=== PATIENT | female | born 1945 ===

== ENCOUNTER 2017-07-14 11:42 | Observation (INO) | payer MEDICARE, OTHER ==
[2017-07-14] MEDS ORDERED: Morphine 4 MG/ML VIAL ONE (13:06)
[2017-07-14] MEDS ORDERED: cefTRIAXone (Rocephin) 1 gm Inj ONE (13:08)
[2017-07-14 13:54] LABS: BASO # 0.2 K/uL (0.0-0.2); BASO % 1.3 % (0.0-2.0); EOS # 0.3 K/uL (0.0-0.7); EOS % 1.8 % (0.0-4.0); HEMOGLOBIN 13.2 g/dL (12.0-16.0); LYMPH # 6.2 K/uL (1.0-4.3); LYMPH % 39.8 % (20.0-40.0); MEAN CELL VOLUME 90.8 fl (81.0-99.0); MEAN PLATELET VOLUME 9.3 fl (7.2-11.7); MONO # 1.4 K/uL (0.0-0.8); MONO % 8.8 % (0.0-10.0); NEUT # 7.5 K/uL (1.8-7.0); NEUT % 48.3 % (50.0-75.0); NRBC % 0.4 % (0.0-0.0); RBC 4.56 Mil/uL (3.80-5.20); RED CELL DISTRIBUTION WIDTH 13.6 % (11.5-14.5); WHITE BLOOD COUNT 15.5 K/uL (4.8-10.8)
[2017-07-14 13:59] LABS: ALBUMIN 4.8 g/dL (3.5-5.0); CALCIUM 9.9 mg/dL (8.4-10.2); GFR AFRICAN-AMERICAN > 60; GFR NON-AFRICAN AMERICAN > 60
[2017-07-14 14:01] LABS: ALB/GLOB RATIO 1.2 (1.0-2.1); ALT/SGPT 28 U/L (9-52); AST/SGOT 30 U/L (14-36); BLOOD UREA NITROGEN 13 mg/dl (7-17)
[2017-07-14] MEDS ORDERED: Sodium Chloride 0.9% 50 ML IV ONE (14:55)
[2017-07-14] MEDS ORDERED: Iohexol 300 100 ML IJ ONE (14:55)
--- NOTE | 2017-07-14 15:50 | CT ---
PROCEDURE: CT Abdomen and Pelvis with contrast HISTORY: left sides abscess COMPARISON: None. TECHNIQUE: Contrast dose: 95 mL Omnipaque 300 Radiation dose: Total exam DLP = 569.5 mGy-cm. This CT exam was performed using one or more of the following dose reduction techniques: Automated exposure control, adjustment of the mA and/or kV according to patient size, and/or use of iterative reconstruction technique. FINDINGS: LOWER THORAX: Cardiomegaly. LIVER: Hepatic steatosis. No gross lesion or ductal dilatation. GALLBLADDER AND BILE DUCTS: Unremarkable. PANCREAS: Unremarkable. No gross lesion or ductal dilatation. SPLEEN: Unremarkable. ADRENALS: Unremarkable. No mass. KIDNEYS AND URETERS: Right renal cortical scarring and upper pole altered perfusion. Right lower pole punctate nonobstructive calculus. No hydronephrosis. No solid mass. VASCULATURE: Unremarkable. No aortic aneurysm. BOWEL: Extensive descending colonic diverticulosis. No obstruction. No gross mural thickening. APPENDIX: Normal appendix. PERITONEUM: Unremarkable. No free fluid. No free air. LYMPH NODES: Unremarkable. No enlarged lymph nodes. BLADDER: Unremarkable. REPRODUCTIVE: Calcified uterine fibroids. BONES: Degenerative changes. OTHER FINDINGS: Left lower quadrant skin thickening with 2.3 x 1.2 centimeter subcutaneous abscess. IMPRESSION: Left lower quadrant skin thickening with 2.3 x 1.2 centimeter subcutaneous abscess. Nonspecific right upper pole altered perfusion. This may be chronic in etiology ; however, a similar appearance can also be seen with pyelonephritis in the appropriate clinical setting. Clinical correlation is recommended. Findings conveyed to GERRI Aiken by Dr. Méndez at 3:43 p.m. on 05/21/2018.
[2017-07-14 16:46] LABS: SQUAMOUS EPITHIAL 2 /hpf (0-5); URINE BILIRUBIN NEGATIVE (NEGATIVE); URINE BLOOD NEGATIVE (NEGATIVE); URINE CLARITY CLEAR (Clear); URINE COLOR STRAW (YELLOW); URINE GLUCOSE (UA) NEG (Normal); URINE LEUKOCYTE ESTERASE TRACE Leu/uL (Negative); URINE NITRATE NEGATIVE (NEGATIVE); URINE PROTEIN NEGATIVE (NEGATIVE); URINE UROBILINOGEN 0.2-1.0 mg/dL (0.2-1.0)
--- NOTE | 2017-07-14 16:53 | ED PDOC ---
HPI: General Adult Time Seen by Provider: 07/14/17 12:31 Chief Complaint (Nursing): Abnormal Skin Integrity Chief Complaint (Provider): infection History Per: Patient History/Exam Limitations: no limitations Additional Complaint(s): 72yo F in ED for eval of abscess/redness to left sided lower abd x 2-3days was seen MD Apolinar for eval and Rx bactirm took two doses. no fever no chills nausea no vomiting. Pt is type 2 DM. pt states she felt an itch, scracthed it and it developed over the past days with warmth, tenderness drainage and pain. Past Medical History Reviewed: Historical Data, Nursing Documentation, Vital Signs Vital Signs: Last Vital Signs Temp 97.0 F L 07/14/17 11:53 Pulse 106 H 07/14/17 11:53 Resp 21 07/14/17 11:53 BP 137/69 07/14/17 11:53 Pulse Ox 100 07/14/17 17:22 - Medical History PMH: Anxiety, Asthma, HTN - Family History Family History: States: No Known Family Hx - Allergies Allergies/Adverse Reactions: Allergies Allergy/AdvReac Type Severity Reaction Status Date / Time No Known Allergies Allergy Verified 07/14/17 12:06 Review of Systems ROS Statement: Except As Marked, All Systems Reviewed And Found Negative Constitutional: Negative for: Fever, Chills Gastrointestinal: Positive for: Abdominal Pain. Negative for: Nausea, Vomiting Skin: Positive for: Lesions Physical Exam - Reviewed Nursing Documentation Reviewed: Yes Vital Signs Reviewed: Yes - Physical Exam Appears: Positive for: Well, Non-toxic, No Acute Distress Skin: Positive for: Normal Color, Warm, DRY Cardiovascular/Chest: Positive for: Regular Rate, Rhythm Respiratory: Positive for: CNT, Normal Breath Sounds Gastrointestinal/Abdominal: Positive for: Bowel Sounds, Soft, Tenderness ( tenderess, redness, warthm induration with central area of minor drainage noted to left lower abd. large area of infection. ) Back: Positive for: Normal Inspection Extremity: Positive for: Normal ROM Neurologic/Psych: Positive for: Alert, Oriented - Laboratory Results Result Diagrams: 07/14/17 13:25 07/14/17 13:25 - ECG O2 Sat by Pulse Oximetry: 100 - CT Scan/US ct: abd Other Rad Studies (CT/US): Radiology Report Reviewed - Progress ED Course And Treament: Orders Category Date Time Status ABD & PELVIS IV CONTRAST ONLY [CT] Stat CT 07/14/17 12:56 Completed COMP METABOLIC PANEL Stat Chem 07/14/17 13:25 Completed CBC (WITH DIFFERENTIAL) Stat ALIA 07/14/17 13:25 Completed Iohexol [Omnipaque 300 100 ML] Med 07/14/17 14:55 Discontinued 100 ml IJ .STK-MED ONE Morphine Med 07/14/17 13:06 Discontinued 4 mg .ROUTE .STK-MED ONE Sodium Chloride 0.9% 50 ml Med 07/14/17 14:55 Discontinued IV .STK-MED cefTRIAXone [Rocephin] Med 07/14/17 13:08 Discontinued 1 gm .ROUTE .STK-MED ONE cefTRIAXone [Rocephin] 1 gm Med 07/14/17 12:56 Discontinued Sodium Chloride 0.9% 100 ml IVPB STAT BLOOD CULTURE Stat Micro 07/14/17 13:25 Received UA [URINALYSIS] Stat URINALYSIS 07/14/17 16:20 Received Medical Decision Making Medical Decision Making: pt meets SIRS/Sepsis criteria-elevated WBC, tachycardia upon arrival and source of infection. no elevated lactic acid I&D performed expressed 4cc bus/blood used #11 blade, packing placed Pt is a DM type 2. Pt will need to be admitted for abscess/cellulites as dx on CT for IV abx Pt admitted under Hospitalist MD Julita for MD Apolinar Disposition - Clinical Impression Clinical Impression: Sepsis, Cellulitis - Patient ED Disposition Is Patient to be Admitted: Yes - Disposition Disposition Time: 17:46 Condition: STABLE - Pt Status Changed To: Hospital Disposition Of: Inpatient - Admit Certification Admit to Inpatient:: After my assessment, the patient will require hospitalization for at least two midnights. This is because of the severity of symptoms shown, intensity of services needed, and/or the medical risk in this patient being treated as an outpatient.
[2017-07-14 17:17] LABS: ABG ALLEN TEST YES; ARTERIAL BLOOD GAS HCO3 24.7 mmol/L (21-28); ARTERIAL BLOOD GAS O2 SAT 100.5 % (95-98); ARTERIAL BLOOD GAS PCO2 30 mm/Hg (35-45); ARTERIAL BLOOD GAS PH 7.48 (7.35-7.45); ARTERIAL BLOOD GAS PO2 104 mm/Hg (80-100); ARTERIAL BLOOD GAS TCO2 23.2 mmol/L (22-28)
[2017-07-14] MEDS ORDERED: Sodium Chloride 0.9% 1,000 ML IV SCH (19:00)
--- NOTE | 2017-07-14 19:07 | CP.PCM.HP ---
History of Present Illness - History of Present Illness History of Present Illness: CC: Abscess This is a 72 yo female with a pmh significant for Type 2 DM controlled with oral medications, hypercholesterolemia, history of right knee replacement, who presents to the ED today with concern due to left lower abdomen infection. The patient states that she first noticed a warm, erythematous area to the LLQ and kept scratching it. The area became worse with serosanguinous drainage noted and the patient had subjective fever and malaise. She went to her PMD, Dr. Jiang, and was prescribed Bactrim DS which she began yesterday evening. The patient thought that the infection was becoming worse so she came to the ED. In the ED, CT scan was performed revealing a 2.3 x 1.2 centimeter subcutaneous abscess. There was also noted nonspecific right upper pole of the kidney altered perfusion which could show pyelonephritis in the appropriate setting. However the patient denies any dysuria or frequency and urinalysis shows only trace leukocyte esterase. Other labwork is significant for a white count of 15.5 , neutrophil count of 7.5, chemistry panel unremarkable. The patient is to be placed on observation for further workup and IV antibiotics and septic workup. The patient denies any headache, nausea, vomiting, diarrhea, chest pain, shortness of breath. She is very anxious however. Present on Admission - Present on Admission Any Indicators Present on Admission: No Review of Systems - Review of Systems Review of Systems: A 12 point review of systems was conducted and found to be negative other than what was mentioned in the history of present illness. Past Patient History - Infectious Disease Hx of Infectious Diseases: None - Past Social History Smoking Status: Never Smoked - CARDIAC Hx Hypertension: Yes - PULMONARY Hx Asthma: Yes - ENDOCRINE/METABOLIC Hx Endocrine Disorders: Yes Other/Comment: Thyroid problem - PSYCHIATRIC Hx Anxiety: Yes - SURGICAL HISTORY Hx Surgeries: Yes - ANESTHESIA Hx Anesthesia: Yes Hx Anesthesia Reactions: No Hx Malignant Hyperthermia: No Meds Allergies/Adverse Reactions: Allergies Allergy/AdvReac Type Severity Reaction Status Date / Time No Known Allergies Allergy Verified 07/14/17 12:06 Physical Exam - Additional Findings Additional findings: Physical exam: Constitutional- cooperative, awake, alert Head- NCAT, PERRL Eye- PERRL, EOMI ENT- normal exam, MMM. Neck- normal inspection, supple, no JVD Respiratory- CTAB, no wheezes rales rhonchi Cardiovascular- RRR, +S1, +S2 no MRG GI/Abdominal- normal bowel sounds, soft, no mass, no hsm Skin- warm, dry Extremities Exam- normal capillary refill, normal inspection Neurological Exam- alert, awake, oriented Psych- normal mood, normal affect Results - Vital Signs Recent Vital Signs: Last Vital Signs Temp 97.0 F L 07/14/17 11:53 Pulse 106 H 07/14/17 11:53 Resp 21 07/14/17 11:53 BP 137/69 07/14/17 11:53 Pulse Ox 100 07/14/17 17:46 - Labs Result Diagrams: 07/14/17 13:25 07/14/17 13:25 Labs: Laboratory Results - last 24 hr 07/14/17 07/14/17 07/14/17 13:25 13:25 16:20 WBC 15.5 H RBC 4.56 Hgb 13.2 Hct 41.4 MCV 90.8 MCH 29.0 MCHC 32.0 L RDW 13.6 Plt Count 303 MPV 9.3 Neut % (Auto) 48.3 L Lymph % (Auto) 39.8 Thayer % (Auto) 8.8 Eos % (Auto) 1.8 Baso % (Auto) 1.3 Neut # 7.5 H Lymph # 6.2 H Thayer # 1.4 H Eos # 0.3 Baso # 0.2 pCO2 pO2 HCO3 ABG pH ABG Total CO2 ABG O2 Saturation ABG Base Excess Jairo Test ABG Potassium A-a O2 Difference Glucose Lactate FiO2 Sodium 142 Potassium 4.6 Chloride 105 Carbon Dioxide 24 Anion Gap 18 BUN 13 Creatinine 0.8 Est GFR ( Amer) > 60 Est GFR (Non-Af Amer) > 60 Random Glucose 85 Calcium 9.9 Total Bilirubin 0.5 AST 30 ALT 28 Alkaline Phosphatase 85 Total Protein 8.9 H Albumin 4.8 Globulin 4.1 H Albumin/Globulin Ratio 1.2 Arterial Blood Potassium Urine Color Straw Urine Clarity Clear Urine pH 7.0 Ur Specific [place] 1.045 H Urine Protein Negative Urine Glucose (UA) Neg Urine Ketones Negative Urine Blood Negative Urine Nitrate Negative Urine Bilirubin Negative Urine Urobilinogen 0.2-1.0 Ur Leukocyte Esterase Trace Urine RBC (Auto) 1 Urine Microscopic WBC 1 Ur Squamous Epith Cells 2 07/14/17 17:10 WBC RBC Hgb Hct MCV MCH MCHC RDW Plt Count MPV Neut % (Auto) Lymph % (Auto) Thayer % (Auto) Eos % (Auto) Baso % (Auto) Neut # Lymph # Thayer # Eos # Baso # pCO2 30 L pO2 104 H HCO3 24.7 ABG pH 7.48 H ABG Total CO2 23.2 ABG O2 Saturation 100.5 H ABG Base Excess -0.3 Jairo Test Yes ABG Potassium 4.2 A-a O2 Difference 8.0 Glucose 190 H Lactate 1.3 FiO2 21.0 Sodium 136.0 Potassium Chloride 105.0 Carbon Dioxide Anion Gap BUN Creatinine Est GFR ( Amer) Est GFR (Non-Af Amer) Random Glucose Calcium Total Bilirubin AST ALT Alkaline Phosphatase Total Protein Albumin Globulin Albumin/Globulin Ratio Arterial Blood Potassium 4.2 Urine Color Urine Clarity Urine pH Ur Specific [place] Urine Protein Urine Glucose (UA) Urine Ketones Urine Blood Urine Nitrate Urine Bilirubin Urine Urobilinogen Ur Leukocyte Esterase Urine RBC (Auto) Urine Microscopic WBC Ur Squamous Epith Cells
[2017-07-15 05:57] VITALS: RESP 18
[2017-07-15 05:59] LABS: MEAN CELL VOLUME 91.8 fl (81.0-99.0); MEAN CORPUSCULAR HEMOGLOBIN 29.5 pg (27.0-31.0); MEAN CORPUSCULAR HGB CONC 32.2 g/dL (33.0-37.0); RBC 4.07 Mil/uL (3.80-5.20); RED CELL DISTRIBUTION WIDTH 13.5 % (11.5-14.5); WHITE BLOOD COUNT 11.5 K/uL (4.8-10.8)
[2017-07-15] MEDS ORDERED: Pravastatin Sodium 20 MG TAB PO SCH (10:00)
--- NOTE | 2017-07-15 10:30 | CP.PCM.PN ---
Subjective - Date & Time of Evaluation Date of Evaluation: 07/15/17 Time of Evaluation: 09:40 - Subjective Subjective: 72 y/o female patient with a PMHx of Type 2 DM controlled with oral medications , hypercholesterolemia, history of right knee replacement who was seen and evaluated for left lower abdomen infection which she acquired secondary to severe scratching. Patient denies of having any acute overnight events. Patient is AAOx3 and is in NAD. Patient states that the redness has improved but she still has a little pain. Patient denies of having any acute overnight events. Denied of having any F/N/V/C/SOB/CP/headache/diarrhea/constipation/headache. Denies of having any new complains at this time. Objective - Vital Signs/Intake and Output Vital Signs (last 24 hours): Temp Pulse Resp BP Pulse Ox 98.3 F 84 18 107/68 99 07/15/17 08:00 07/15/17 08:00 07/15/17 08:00 07/15/17 08:00 07/15/17 08:00 - Medications Medications: Current Medications Acetaminophen (Tylenol 325mg Tab) 650 mg PO Q6 PRN PRN Reason: Pain, Mild (1-3) Alprazolam (Xanax) 0.5 mg PO Q8 PRN PRN Reason: Anxiety Atorvastatin Calcium (Lipitor) 20 mg PO HS LAURA Calcium/Vitamin D (Oyster Shell Calcium/Vitamin D 500 Mg-200 Iu) 1 tab PO BID LAURA Dorzolamide HCl (Trusopt) 1 drop OU HS LAURA Famotidine (Pepcid) 20 mg PO BID LAURA Ferrous Sulfate (Feosol) 325 mg PO BID LAURA Glipizide (Glucotrol) 10 mg PO BIDAC [facility] Last Admin: 07/15/17 08:00 Dose: 10 mg Glipizide (Glucotrol) 10 mg PO DAILY [facility] Home Med (Alendronate Sodium [Binosto]) 60 mg PO QD7 LAURA Sodium Chloride (Sodium Chloride 0.9%) 1,000 mls @ 100 mls/hr IV .Q10H [facility] Last Admin: 07/14/17 21:45 Dose: 100 mls/hr Vancomycin HCl 1 gm/ Sodium (Chloride) 250 mls @ 125 mls/hr IVPB Q12H LAURA PRN Reason: Protocol Last Admin: 07/15/17 09:00 Dose: 125 mls/hr Ceftriaxone Sodium 1 gm/ (Sodium Chloride) 100 mls @ 100 mls/hr IVPB DAILY LAURA PRN Reason: Protocol Latanoprost (Xalatan Opht) 1 drop OU HS LAURA Loratadine (Claritin) 10 mg PO DAILY LAURA Losartan Potassium (Cozaar) 25 mg PO DAILY LAURA Metformin HCl (Glucophage) 500 mg PO DAILY LAURA Methimazole (Tapazole) 10 mg PO DAILY LAURA Naproxen (Naproxen) 500 mg PO Q12 LAURA Pravastatin Sodium (Pravachol) 20 mg PO DAILY LAURA Tramadol HCl (Ultram) 50 mg PO Q6 PRN PRN Reason: Other - Labs Labs: 07/15/17 05:00 07/14/17 13:25 - Constitutional Appears: Well, Non-toxic, No Acute Distress - Head Exam Head Exam: ATRAUMATIC - Eye Exam Eye Exam: Normal appearance - ENT Exam ENT Exam: Normal Exam - Neck Exam Neck Exam: Full ROM, Normal Inspection - Respiratory Exam Respiratory Exam: Clear to Ausculation Bilateral, NORMAL BREATHING PATTERN - Cardiovascular Exam Cardiovascular Exam: REGULAR RHYTHM, +S1, +S2 - GI/Abdominal Exam GI & Abdominal Exam: Soft, Normal Bowel Sounds - Rectal Exam Rectal Exam: Deferred - Extremities Exam Extremities Exam: Full ROM, Normal Capillary Refill, Normal Inspection. absent : Calf Tenderness, Joint Swelling, Pedal Edema, Tenderness - Back Exam Back Exam: Full ROM, NORMAL INSPECTION - Neurological Exam Neurological Exam: Alert, Awake, Oriented x3 - Psychiatric Exam Psychiatric exam: Normal Affect, Normal Mood - Skin Skin Exam: Erythema, Warm Additional comments: Dressing in LLQ is intact with surrounding erythema which extends approximately 5 cm circumferentially. mild tenderness with warmth noted on palpation of the site. No strike through noted from the site. No active drainage Assessment and Plan - Assessment and Plan (Free Text) Assessment: 72 y/o female patient with a PMHx of Type 2 DM controlled with oral medications , hypercholesterolemia, history of right knee replacement who was seen and evaluated for left lower abdomen infection which she acquired secondary to severe scratching. Plan: 1) LLQ abdominal subcutaneous abscess, s/p I&D in the ED on 07/14/2017 - Afebrile, WBC @ 11.5 (trending down), no tachycardia noted today and vital signs stable - Vancomycin 1 gram IVPB q 12 hours - Rocephin 1 gram IVPB q daily (additional coverage for gram neg as she is a diabetic) - Tylenol and Ultram PRN for pain - Wound care consultation - F/u wound cx, blood cx - Gram stain shows no microbial growth 2) Type 2 DM - Glipizide 10 mg po - Held Metformin as she has just received IV contrast for CT - Diabetic diet 3) Hypercholesterolemia - Continue home statin 4) DVT prophylaxis - SCDs (given recent I&D, not giving heparin at this time) - Ambulating
[2017-07-15 11:46] VITALS: PULSE 78
--- NOTE | 2017-07-15 12:05 | CP.PCM.DIS ---
<[facility] - Last Filed: 07/15/17 11:51> Provider - Provider Date of Admission: 07/14/17 17:29 Attending physician: Raphael Cancino DO Time Spent in preparation of Discharge (in minutes): 20 Hospital Course - Lab Results Lab Results: Micro Results 07/14/17 18:00 Abscess - Abdominal Gram Stain - Final Most Recent Lab Values WBC 11.5 K/uL (4.8-10.8) H 07/15/17 05:00 RBC 4.07 Mil/uL (3.80-5.20) 07/15/17 05:00 Hgb 12.0 g/dL (12.0-16.0) 07/15/17 05:00 Hct 37.3 % (34.0-47.0) 07/15/17 05:00 MCV 91.8 fl (81.0-99.0) 07/15/17 05:00 MCH 29.5 pg (27.0-31.0) 07/15/17 05:00 MCHC 32.2 g/dL (33.0-37.0) L 07/15/17 05:00 RDW 13.5 % (11.5-14.5) 07/15/17 05:00 Plt Count 255 K/uL (130-400) 07/15/17 05:00 MPV 9.3 fl (7.2-11.7) 07/14/17 13:25 Neut % (Auto) 48.3 % (50.0-75.0) L 07/14/17 13:25 Lymph % (Auto) 39.8 % (20.0-40.0) 07/14/17 13:25 Gallia % (Auto) 8.8 % (0.0-10.0) 07/14/17 13:25 Eos % (Auto) 1.8 % (0.0-4.0) 07/14/17 13:25 Baso % (Auto) 1.3 % (0.0-2.0) 07/14/17 13:25 Neut # 7.5 K/uL (1.8-7.0) H 07/14/17 13:25 Lymph # 6.2 K/uL (1.0-4.3) H 07/14/17 13:25 Gallia # 1.4 K/uL (0.0-0.8) H 07/14/17 13:25 Eos # 0.3 K/uL (0.0-0.7) 07/14/17 13:25 Baso # 0.2 K/uL (0.0-0.2) 07/14/17 13:25 pCO2 30 mm/Hg (35-45) L 07/14/17 17:10 pO2 104 mm/Hg (80-100) H 07/14/17 17:10 HCO3 24.7 mmol/L (21-28) 07/14/17 17:10 ABG pH 7.48 (7.35-7.45) H 07/14/17 17:10 ABG Total CO2 23.2 mmol/L (22-28) 07/14/17 17:10 ABG O2 Saturation 100.5 % (95-98) H 07/14/17 17:10 ABG Base Excess -0.3 mmol/L (-2.0-3.0) 07/14/17 17:10 Jairo Test Yes 07/14/17 17:10 ABG Potassium 4.2 mmol/L (3.6-5.2) 07/14/17 17:10 A-a O2 Difference 8.0 mm/Hg 07/14/17 17:10 Sodium 136.0 mmol/L (132-148) 07/14/17 17:10 Chloride 105.0 mmol/L (98-107) 07/14/17 17:10 Glucose 190 mg/dL (65-105) H 07/14/17 17:10 Lactate 1.3 mmol/L (0.7-2.1) 07/14/17 17:10 FiO2 21.0 % 07/14/17 17:10 Sodium 142 mmol/l (132-148) 07/14/17 13:25 Potassium 4.6 MMOL/L (3.6-5.0) 07/14/17 13:25 Chloride 105 mmol/L (98-107) 07/14/17 13:25 Carbon Dioxide 24 mmol/L (22-30) 07/14/17 13:25 Anion Gap 18 (10-20) 07/14/17 13:25 BUN 13 mg/dl (7-17) 07/14/17 13:25 Creatinine 0.8 mg/dl (0.7-1.2) 07/14/17 13:25 Est GFR ( Amer) > 60 07/14/17 13:25 Est GFR (Non-Af Amer) > 60 07/14/17 13:25 POC Glucose (mg/dL) 129 mg/dL (65-110) H 07/15/17 11:15 Random Glucose 85 mg/dL (65-105) 07/14/17 13:25 Calcium 9.9 mg/dL (8.4-10.2) 07/14/17 13:25 Total Bilirubin 0.5 mg/dl (0.2-1.3) 07/14/17 13:25 AST 30 U/L (14-36) 07/14/17 13:25 ALT 28 U/L (9-52) 07/14/17 13:25 Alkaline Phosphatase 85 U/L (38-126) 07/14/17 13:25 Total Protein 8.9 G/DL (6.3-8.2) H 07/14/17 13:25 Albumin 4.8 g/dL (3.5-5.0) 07/14/17 13:25 Globulin 4.1 gm/dL (2.2-3.9) H 07/14/17 13:25 Albumin/Globulin Ratio 1.2 (1.0-2.1) 07/14/17 13:25 Arterial Blood Potassium 4.2 mmol/L (3.6-5.2) 07/14/17 17:10 Urine Color Straw (YELLOW) 07/14/17 16:20 Urine Clarity Clear (Clear) 07/14/17 16:20 Urine pH 7.0 (5.0-8.0) 07/14/17 16:20 Ur Specific [place] 1.045 (1.003-1.030) H 07/14/17 16:20 Urine Protein Negative mg/dL (NEGATIVE) 07/14/17 16:20 Urine Glucose (UA) Neg mg/dL (Normal) 07/14/17 16:20 Urine Ketones Negative mg/dL (NEGATIVE) 07/14/17 16:20 Urine Blood Negative (NEGATIVE) 07/14/17 16:20 Urine Nitrate Negative (NEGATIVE) 07/14/17 16:20 Urine Bilirubin Negative (NEGATIVE) 01/11/18 16:20 Urine Urobilinogen 0.2-1.0 mg/dL (0.2-1.0) 07/14/17 16:20 Ur Leukocyte Esterase Trace Joshua/uL (Negative) 07/14/17 16:20 Urine RBC (Auto) 1 /hpf (0-3) 07/14/17 16:20 Urine Microscopic WBC 1 /hpf (0-5) 07/14/17 16:20 Ur Squamous Epith Cells 2 /hpf (0-5) 07/14/17 16:20 - Hospital Course Hospital Course: 72 y/o female patient with a PMHx of Type 2 DM controlled with oral medications , hypercholesterolemia, history of right knee replacement who was admitted to the hospital for left lower abdomen infection which she acquired secondary to severe scratching. Patient reported that at first the area became warm, erythematous and started to have serosanguinous drainage which led her to come to the ED after seeing her PCP. Upon arrival, patient received a CT scan which revealed a 2.3 cm x 1.2 cm subcutaneous abscess. Lab workup was significant with WBC @ 15.5 and neutrophil count of 7.5. Patient received IV abx ceftriaxone and vancomycin during her hospital stay. This morning, patient is afebrile and her WBC is trending down to 11.5. Denied of having any F/N/V/C/SOB/ CP/headache/diarrhea/constipation/headache. Denies of having any new complains at this time. Patient will be discharged home with Bactrim DS BID x 7 days. Patient will require home nurse due to generalized weakness and resolving sepsis. Home nurse to come for evaluation of wound on Tuesday. 1) LLQ abdominal subcutaneous abscess, s/p I&D in the ED on 07/14/2017 - Upon admission, patient had elevated WBC, tachycardia and an infection source - r/o sepsis - Afebrile, WBC @ 11.5 (trending down), no tachycardia noted today and vital signs stable - Vancomycin 1 gram IVPB q 12 hours - Rocephin 1 gram IVPB q daily (additional coverage for gram neg as she is a diabetic) - Tylenol and Ultram PRN for pain - Wound care consultation - F/u wound cx, blood cx - Gram stain shows no microbial growth 2) Type 2 DM - Glipizide 10 mg po - Held Metformin as she has just received IV contrast for CT - Diabetic diet 3) Hypercholesterolemia - Continue home statin 4) DVT prophylaxis - SCDs (given recent I&D, not giving heparin at this time) - Date & Time of H&P Date of H&P: 07/15/17 Time of H&P: 11:51 Discharge Exam - Head Exam Head Exam: ATRAUMATIC - Eye Exam Eye Exam: Normal appearance Pupil Exam: NORMAL ACCOMODATION - ENT Exam ENT Exam: Normal Exam - Neck Exam Neck exam: Full Rom, Normal Inspection - Respiratory Exam Respiratory Exam: Clear to PA & Lateral, UNREMARKABLE - Cardiovascular Exam Cardiovascular Exam: REGULAR RHYTHM, +S1, +S2 - GI/Abdominal Exam GI & Abdominal Exam: Normal Bowel Sounds, Soft, Unremarkable - Rectal Exam Rectal Exam: Deferred - Extremities Exam Extremities exam: full ROM, normal capillary refill, normal inspection, pedal pulses present - Back Exam Back exam: FULL ROM, NORMAL INSPECTION - Neurological Exam Neurological exam: Alert, Oriented x3 - Psychiatric Exam Psychiatric exam: Normal Affect, Normal Mood - Skin Skin Exam: Erythema, Warm Additional comments: Dressing in LLQ is intact with surrounding erythema which extends approximately 5 cm circumferentially. mild tenderness with warmth noted on palpation of the site. No strike through noted from the site. No active drainage Discharge Plan - Discharge Medications Prescriptions: Sulfamethoxazole/Trimethoprim [Bactrim DS 800 mg-160 mg] 1 tab PO Q12H 7 Days # 14 tab - Follow Up Plan Condition: STABLE Disposition: HOME/ ROUTINE Instructions: Cellulitis (DC), Cellulitis (GEN), Sepsis (DC), Sepsis (GEN) <James Cancino - Last Filed: 07/15/17 12:50> Provider - Provider Date of Admission: 07/14/17 17:29 Attending physician: Raphael Cancino DO Hospital Course - Lab Results Lab Results: Micro Results 07/14/17 18:00 Abscess - Abdominal Gram Stain - Final Most Recent Lab Values WBC 11.5 K/uL (4.8-10.8) H 07/15/17 05:00 RBC 4.07 Mil/uL (3.80-5.20) 07/15/17 05:00 Hgb 12.0 g/dL (12.0-16.0) 07/15/17 05:00 Hct 37.3 % (34.0-47.0) 07/15/17 05:00 MCV 91.8 fl (81.0-99.0) 07/15/17 05:00 MCH 29.5 pg (27.0-31.0) 07/15/17 05:00 MCHC 32.2 g/dL (33.0-37.0) L 07/15/17 05:00 RDW 13.5 % (11.5-14.5) 07/15/17 05:00 Plt Count 255 K/uL (130-400) 07/15/17 05:00 MPV 9.3 fl (7.2-11.7) 07/14/17 13:25 Neut % (Auto) 48.3 % (50.0-75.0) L 07/14/17 13:25 Lymph % (Auto) 39.8 % (20.0-40.0) 07/14/17 13:25 Gallia % (Auto) 8.8 % (0.0-10.0) 07/14/17 13:25 Eos % (Auto) 1.8 % (0.0-4.0) 07/14/17 13:25 Baso % (Auto) 1.3 % (0.0-2.0) 07/14/17 13:25 Neut # 7.5 K/uL (1.8-7.0) H 07/14/17 13:25 Lymph # 6.2 K/uL (1.0-4.3) H 07/14/17 13:25 Gallia # 1.4 K/uL (0.0-0.8) H 07/14/17 13:25 Eos # 0.3 K/uL (0.0-0.7) 07/14/17 13:25 Baso # 0.2 K/uL (0.0-0.2) 07/14/17 13:25 pCO2 30 mm/Hg (35-45) L 07/14/17 17:10 pO2 104 mm/Hg (80-100) H 07/14/17 17:10 HCO3 24.7 mmol/L (21-28) 07/14/17 17:10 ABG pH 7.48 (7.35-7.45) H 07/14/17 17:10 ABG Total CO2 23.2 mmol/L (22-28) 07/14/17 17:10 ABG O2 Saturation 100.5 % (95-98) H 07/14/17 17:10 ABG Base Excess -0.3 mmol/L (-2.0-3.0) 07/14/17 17:10 Jairo Test Yes 07/14/17 17:10 ABG Potassium 4.2 mmol/L (3.6-5.2) 07/14/17 17:10 A-a O2 Difference 8.0 mm/Hg 07/14/17 17:10 Sodium 136.0 mmol/L (132-148) 07/14/17 17:10 Chloride 105.0 mmol/L (98-107) 07/14/17 17:10 Glucose 190 mg/dL (65-105) H 07/14/17 17:10 Lactate 1.3 mmol/L (0.7-2.1) 07/14/17 17:10 FiO2 21.0 % 07/14/17 17:10 Sodium 142 mmol/l (132-148) 07/14/17 13:25 Potassium 4.6 MMOL/L (3.6-5.0) 07/14/17 13:25 Chloride 105 mmol/L (98-107) 07/14/17 13:25 Carbon Dioxide 24 mmol/L (22-30) 07/14/17 13:25 Anion Gap 18 (10-20) 07/14/17 13:25 BUN 13 mg/dl (7-17) 07/14/17 13:25 Creatinine 0.8 mg/dl (0.7-1.2) 07/14/17 13:25 Est GFR ( Amer) > 60 07/14/17 13:25 Est GFR (Non-Af Amer) > 60 07/14/17 13:25 POC Glucose (mg/dL) 129 mg/dL (65-110) H 07/15/17 11:15 Random Glucose 85 mg/dL (65-105) 07/14/17 13:25 Calcium 9.9 mg/dL (8.4-10.2) 07/14/17 13:25 Total Bilirubin 0.5 mg/dl (0.2-1.3) 07/14/17 13:25 AST 30 U/L (14-36) 07/14/17 13:25 ALT 28 U/L (9-52) 07/14/17 13:25 Alkaline Phosphatase 85 U/L (38-126) 07/14/17 13:25 Total Protein 8.9 G/DL (6.3-8.2) H 07/14/17 13:25 Albumin 4.8 g/dL (3.5-5.0) 07/14/17 13:25 Globulin 4.1 gm/dL (2.2-3.9) H 07/14/17 13:25 Albumin/Globulin Ratio 1.2 (1.0-2.1) 07/14/17 13:25 Arterial Blood Potassium 4.2 mmol/L (3.6-5.2) 07/14/17 17:10 Urine Color Straw (YELLOW) 07/14/17 16:20 Urine Clarity Clear (Clear) 07/14/17 16:20 Urine pH 7.0 (5.0-8.0) 07/14/17 16:20 Ur Specific [place] 1.045 (1.003-1.030) H 07/14/17 16:20 Urine Protein Negative mg/dL (NEGATIVE) 07/14/17 16:20 Urine Glucose (UA) Neg mg/dL (Normal) 07/14/17 16:20 Urine Ketones Negative mg/dL (NEGATIVE) 07/14/17 16:20 Urine Blood Negative (NEGATIVE) 07/14/17 16:20 Urine Nitrate Negative (NEGATIVE) 07/14/17 16:20 Urine Bilirubin Negative (NEGATIVE) 07/14/17 16:20 Urine Urobilinogen 0.2-1.0 mg/dL (0.2-1.0) 07/14/17 16:20 Ur Leukocyte Esterase Trace Joshua/uL (Negative) 07/14/17 16:20 Urine RBC (Auto) 1 /hpf (0-3) 07/14/17 16:20 Urine Microscopic WBC 1 /hpf (0-5) 07/14/17 16:20 Ur Squamous Epith Cells 2 /hpf (0-5) 07/14/17 16:20
[2017-07-15 12:57] VITALS: BP 104/67; TEMP 98.2; O2SAT 98
[2017-07-15] MEDS ORDERED: Calcium-Vit D 500 mg-200 Units Tab UD PO SCH (17:00)
[2017-07-15] MEDS ORDERED: Naproxen 500 MG TAB PO SCH (21:00)
[2017-07-15] MEDS ORDERED: Dorzolamide 2% Ophth Soln OU SCH (22:00)
[2017-07-15] MEDS ORDERED: Latanoprost 0.005% Opht SOUTION OU SCH (22:00)
[2017-07-16] MEDS ORDERED: ALENDRONATE SODIUM PO SCH (07:30)
== END 2017-07-15 14:02 | disposition home health service (06) ==
LOC: H.ER 11:42 → H.ERHOLD 17:29 → INTOOBSV 17:29 → H.TEL 21:06
PROVIDERS: ADMIT Internal Medicine; ATTEND Internal Medicine
DX: L02.211 Cutaneous abscess of abdominal wall (principal); D72.829 Elevated white blood cell count, unspecified; R00.0 Tachycardia, unspecified; E11.9 Type 2 diabetes mellitus without complications; E78.00 Pure hypercholesterolemia, unspecified; I10 Essential (primary) hypertension; J45.909 Unspecified asthma, uncomplicated; N12 Tubulo-interstitial nephritis, not specified as acute or chronic; Z79.84 Long term (current) use of oral hypoglycemic drugs; Z96.651 Presence of right artificial knee joint; F41.9 Anxiety disorder, unspecified
CPT/HCPCS: 10060; 36415; 36600; 74177; 80053; 81003; 82803; 82948; 85025; 85027; 87040; 87070; 87181; 99284; G0378; J0696; J7040; Q9967

== ENCOUNTER 2017-07-18 08:34 | Emergency (ER) | payer MEDICARE, OTHER ==
[2017-07-18 08:55] VITALS: BP 130/72; RESP 18; O2SAT 95
--- NOTE | 2017-07-18 09:27 | ED PDOC ---
HPI: CCC, URI, Sore Throat Time Seen by Provider: 07/18/17 08:45 Chief Complaint (Nursing): Flu-like Symptoms Chief Complaint (Provider): Flu-like symptoms History Per: Patient History/Exam Limitations: no limitations Onset/Duration Of Symptoms: Days (today) Current Symptoms Are (Timing): Still Present Location Of Pain: Headache Associated Symptoms: Fever, Cough, Sputum (green). denies: Vomiting, Diarrhea Ear Symptoms: Bilateral: None Severity: Mild Additional Complaint(s): Leilani Hermosillo is a 72 year old female, with a past medical history of asthma, HTN, hypothyroidism and diabetes, who presents to the emergency department complaining of fever, productive cough, and headache onset since today. Patient states yesterday she was fine but today she woke up with a fever and productive cough with green sputum. She denies any vomiting or diarrhea. No further medical complaints. PMD: Fernando Jiang Past Medical History Reviewed: Historical Data, Nursing Documentation, Vital Signs Vital Signs: Last Vital Signs Temp 97.9 F 07/18/17 11:10 Pulse 99 H 07/18/17 11:10 Resp 18 07/18/17 08:51 BP 130/72 07/18/17 08:51 Pulse Ox 95 07/18/17 11:17 - Medical History PMH: Anxiety, Asthma, Diabetes, HTN, Hypothyroidism Denies: Chronic Kidney Disease - Surgical History Other surgeries: right knee surgery - Family History Family History: States: Unknown Family Hx - Social History Current smoker - smoking cessation education provided: No Alcohol: None Drugs: Denies - Home Medications Home Medications: Ambulatory Orders Medication Instructions Recorded Alendronate Sodium [Binosto] 60 mg PO QD7 07/14/17 Alprazolam [Xanax] 0.5 mg PO DAILY PRN 07/14/17 Bimatoprost [Lumigan] 1 drop BOTHEYES HS 07/14/17 Calcium Carb/D3/Magnesium/Zinc 1 tab PO TID 07/14/17 [Gary Mag Zinc + D Tablet] Calcium Carbonate/Vitamin D3 1 tab PO BID 07/14/17 [Oysco 500-Vit D3 200 Tablet] Dorzolamide 2% [Trusopt] 1 drop BOTHEYES HS 07/14/17 Ferrous Sulfate [Ferosul] 325 mg PO BID 07/14/17 GlipiZIDE [Glucotrol] 10 mg PO DAILY 07/14/17 Levocetirizine Dihydrochloride 5 mg PO DAILY 07/14/17 [Xyzal] Losartan Potassium 25 mg PO DAILY 07/14/17 Meloxicam [Mobic] 15 mg PO DAILY 07/14/17 Methimazole 10 mg PO DAILY 07/14/17 Pravastatin Sodium [Pravachol] 20 mg PO DAILY 07/14/17 Ranitidine HCl [Acid Spikemaking Supervisor] 150 mg PO BID 07/14/17 metFORMIN [glucOPHAGE] 500 mg PO DAILY 07/14/17 Sulfamethoxazole/Trimethoprim 1 tab PO Q12H 7 Days #14 tab 07/15/17 [Bactrim DS 800 mg-160 mg] Albuterol HFA [Ventolin HFA 90 1 - 2 puff IH Q4H PRN #1 bottle 07/18/17 mcg/actuation (8 g)] Oseltamivir [Tamiflu] 75 mg PO BID #10 cap 07/18/17 - Allergies Allergies/Adverse Reactions: Allergies Allergy/AdvReac Type Severity Reaction Status Date / Time No Known Allergies Allergy Verified 07/14/17 12:06 Review of Systems ROS Statement: Except As Marked, All Systems Reviewed And Found Negative Constitutional: Positive for: Fever Respiratory: Positive for: Cough (productive), Sputum (green ) Gastrointestinal: Negative for: Vomiting, Diarrhea Neurological: Positive for: Headache Physical Exam - Reviewed Nursing Documentation Reviewed: Yes Vital Signs Reviewed: Yes - Physical Exam Appears: Positive for: Well, Non-toxic, No Acute Distress Head Exam: Positive for: ATRAUMATIC, NORMAL INSPECTION, NORMOCEPHALIC Skin: Positive for: Normal Color, Warm, Dry Eye Exam: Positive for: Normal appearance, EOMI, PERRL ENT: Positive for: Normal ENT Inspection Neck: Positive for: Normal, Painless ROM, Supple Cardiovascular/Chest: Positive for: Regular Rate, Rhythm. Negative for: Murmur Respiratory: Positive for: Normal Breath Sounds. Negative for: Respiratory Distress Gastrointestinal/Abdominal: Positive for: Normal Exam, Soft. Negative for: Tenderness Back: Positive for: Normal Inspection. Negative for: L CVA Tenderness, R CVA Tenderness Extremity: Positive for: Normal ROM. Negative for: Pedal Edema, Deformity, Swelling Neurologic/Psych: Positive for: Alert, Oriented - ECG O2 Sat by Pulse Oximetry: 95 (RA) Pulse Ox Interpretation: Normal Medical Decision Making Medical Decision Making: Initial Impression: fever rule out Influenza vs pneumonia Initial Plan: --EKG --Chest two views (PA/LAT) [RAD] --Tylenol 375 mg tab 975 mg PO --Albuterol 0.083% Inhal Kendal 2.5 mg INH --Peak flow pre/post Tx --Influenza A B --reevaluation 11:08 Chest X-Ray FINDINGS: LUNGS: Diminished inspiratory volume is identified. Crowding of the bronchovascular markings is appreciated as result bilaterally without definite alveolitis appreciated bilaterally. PLEURA: No significant pleural effusion identified. No pneumothorax apparent. CARDIOVASCULAR: Normal. OSSEOUS STRUCTURES: No significant abnormalities. VISUALIZED UPPER ABDOMEN: Normal. OTHER FINDINGS: None. IMPRESSION: Crowding of the bronchovascular markings appreciated bilaterally on the basis of diminished inspiratory volume without obvious infiltrate or pleural effusion identified at this time. Further clinical correlation is nevertheless required. 11:15 --Patient feels a lot better, breathing improved. fever came down. Upon provider evaluation patient is medically stable, and requires no further treatment in the ED at this time. Patient will be discharged home with Rx for Tamiflu. Counseling was provided and all questions were answered regarding diagnosis and need for follow up with PMD. There is agreement to discharge plan. Return if symptoms persist or worsen. Scribe Attestation: Documented by Paulo Gaxiola, acting as a scribe for dAry Langston MD Provider Scribe Attestation: All medical record entries made by the Scribe were at my direction and personally dictated by me. I have reviewed the chart and agree that the record accurately reflects my personal performance of the history, physical exam, medical decision making, and the department course for this patient. I have also personally directed, reviewed, and agree with the discharge instructions and disposition. Disposition - Clinical Impression Clinical Impression: Influenza - Patient ED Disposition Is Patient to be Admitted: No Counseled Patient/Family Regarding: Studies Performed, Diagnosis, Need For Followup - Disposition Disposition: Routine/Home Disposition Time: 11:00 Condition: IMPROVED Additional Instructions: follow up with your primary doctor in 1-2 days return to the ED with any worsening or concerning symptoms. Prescriptions: Albuterol HFA [Ventolin HFA 90 mcg/actuation (8 g)] 1 - 2 puff IH Q4H PRN #1 bottle PRN Reason: Wheezing Oseltamivir [Tamiflu] 75 mg PO BID #10 cap Instructions: Influenza (ED) Forms: [employer] (Turkish)
[2017-07-18] MEDS ORDERED: Albuterol 0.083% Inhal Sol (2.5 mg/3 mL) UD INH ONE (09:47)
[2017-07-18] MEDS ORDERED: Albuterol 0.083% Inhal Sol (2.5 mg/3 mL) UD ONE (09:52)
--- NOTE | 2017-07-18 11:10 | RAD ---
HISTORY: cxr COMPARISON: Prior chest radiographs 01/29/2013. TECHNIQUE: Chest PA and lateral FINDINGS: LUNGS: Diminished inspiratory volume is identified. Crowding of the bronchovascular markings is appreciated as result bilaterally without definite alveolitis appreciated bilaterally. PLEURA: No significant pleural effusion identified. No pneumothorax apparent. CARDIOVASCULAR: Normal. OSSEOUS STRUCTURES: No significant abnormalities. VISUALIZED UPPER ABDOMEN: Normal. OTHER FINDINGS: None. IMPRESSION: Crowding of the bronchovascular markings appreciated bilaterally on the basis of diminished inspiratory volume without obvious infiltrate or pleural effusion identified at this time. Further clinical correlation is nevertheless required.
[2017-07-18 11:11] VITALS: PULSE 99; TEMP 97.9
--- NOTE | 2017-07-18 16:44 | CARD ---
APPROVED REPORT EKG Measurement Heart [id number] <Conclusion> Sinus tachycardia Nonspecific T wave abnormality Abnormal ECG
== END 2017-07-18 12:06 | disposition home or self-care (01) ==
LOC: H.ER 08:34
DX: J11.1 Influenza due to unidentified influenza virus with other respiratory manifestations (principal); E03.9 Hypothyroidism, unspecified; E11.9 Type 2 diabetes mellitus without complications; F41.9 Anxiety disorder, unspecified; I10 Essential (primary) hypertension; J45.909 Unspecified asthma, uncomplicated; Z79.84 Long term (current) use of oral hypoglycemic drugs

== ENCOUNTER 2017-07-23 08:54 | Emergency (ER) | payer MEDICARE, OTHER ==
[2017-07-23 08:59] VITALS: RESP 17; O2SAT 93
[2017-07-23 09:02] VITALS: BMI 25.9
[2017-07-23 09:05] VITALS: BP 114/63; PULSE 79; TEMP 98
--- NOTE | 2017-07-23 09:37 | ED PDOC ---
HPI: Allergic Reaction Time Seen by Provider: 07/23/17 09:28 Chief Complaint (Nursing): Allergic Reaction History Per: Patient Onset/Duration Of Symptoms: Days (2) Associated Symptoms: Skin Rash, Itching. denies: Dyspnea, Trouble Swallowing Home/EMS Treatment: None Severity: Mild Additional Complaint(s): Itchy rash on neck x 2 days. Denies SOB or tightness in throat. Started Bactrim and Tamiflu 4 days ago Past Medical History Vital Signs: Last Vital Signs Temp 98 F 07/23/17 08:57 Pulse 79 07/23/17 08:57 Resp 17 07/23/17 08:57 BP 114/63 07/23/17 08:57 Pulse Ox 93 L 07/23/17 08:57 - Medical History PMH: Anxiety, Asthma, Diabetes, HTN, Hypothyroidism Denies: Chronic Kidney Disease - Family History Family History: States: Unknown Family Hx - Home Medications Home Medications: Ambulatory Orders Medication Instructions Recorded Alendronate Sodium [Binosto] 60 mg PO QD7 07/14/17 Alprazolam [Xanax] 0.5 mg PO DAILY PRN 07/14/17 Bimatoprost [Lumigan] 1 drop BOTHEYES HS 07/14/17 Calcium Carb/D3/Magnesium/Zinc 1 tab PO TID 07/14/17 [Gary Mag Zinc + D Tablet] Calcium Carbonate/Vitamin D3 1 tab PO BID 07/14/17 [[place] 500-Vit D3 200 Tablet] Dorzolamide 2% [Trusopt] 1 drop BOTHEYES HS 07/14/17 Ferrous Sulfate [Ferosul] 325 mg PO BID 07/14/17 GlipiZIDE [Glucotrol] 10 mg PO DAILY 07/14/17 Levocetirizine Dihydrochloride 5 mg PO DAILY 07/14/17 [Xyzal] Losartan Potassium 25 mg PO DAILY 07/14/17 Meloxicam [Mobic] 15 mg PO DAILY 07/14/17 Methimazole 10 mg PO DAILY 07/14/17 Pravastatin Sodium [Pravachol] 20 mg PO DAILY 07/14/17 Ranitidine HCl [Acid Otr Tanker Truck Driver] 150 mg PO BID 07/14/17 metFORMIN [glucOPHAGE] 500 mg PO DAILY 07/14/17 Sulfamethoxazole/Trimethoprim 1 tab PO Q12H 7 Days #14 tab 07/15/17 [Bactrim DS 800 mg-160 mg] Albuterol HFA [Ventolin HFA 90 1 - 2 puff IH Q4H PRN #1 bottle 07/18/17 mcg/actuation (8 g)] Oseltamivir [Tamiflu] 75 mg PO BID #10 cap 07/18/17 Cetirizine HCl [Zyrtec] 10 mg PO DAILY #10 capsule 07/23/17 Clindamycin [Cleocin] 300 mg PO TID #30 cap 07/23/17 predniSONE [predniSONE Tab] 10 mg PO TID #15 tab 07/23/17 - Allergies Allergies/Adverse Reactions: Allergies Allergy/AdvReac Type Severity Reaction Status Date / Time No Known Allergies Allergy Verified 07/14/17 12:06 Review of Systems Constitutional: Negative for: Fever ENT: Negative for: Throat Swelling Respiratory: Negative for: Shortness of Breath Skin: Positive for: Rash Physical Exam - Physical Exam Appears: Positive for: Non-toxic, No Acute Distress Skin: Positive for: Rash (Erythemetous rash lateral neck bilat) ENT: Negative for: Pharyngeal Erythema, Tonsillar Swelling Cardiovascular/Chest: Positive for: Regular Rate, Rhythm Respiratory: Positive for: Normal Breath Sounds - ECG O2 Sat by Pulse Oximetry: 93 Disposition - Clinical Impression Clinical Impression: Allergic reaction - Patient ED Disposition Is Patient to be Admitted: No Counseled Patient/Family Regarding: Diagnosis, Need For Followup, Rx Given - Disposition Referrals: [facility] [Outside] Disposition: Routine/Home Disposition Time: 09:38 Condition: FAIR Additional Instructions: Stop Bactrim and Tamiflu Prescriptions: Cetirizine HCl [Zyrtec] 10 mg PO DAILY #10 capsule Clindamycin [Cleocin] 300 mg PO TID #30 cap predniSONE [predniSONE Tab] 10 mg PO TID #15 tab Instructions: General Allergic Reaction (ED) Print Language: MARSHALLESE
== END 2017-07-23 10:00 | disposition home or self-care (01) ==
LOC: H.ER 08:54
DX: T78.40XA Allergy, unspecified, initial encounter (principal)